=== PATIENT | male | born 1995 | race African-American/Black ===

== ENCOUNTER 2021-10-22 11:17 | Emergency (ER) | payer OTHER ==
[~2021-10-22] VITALS: Ht 172.7 cm; Wt 89.0 kg
[2021-10-22 11:36] VITALS: BP 139/85
[2021-10-22] MEDS ORDERED: CEFTRIAXONE SODIUM 500 MG/VIAL IM ONE (13:15)
[2021-10-22] MEDS ORDERED: LIDOCAINE HCL 1% 20ML VIAL (Pyxis) INJ INFIL ONE (13:15)
[2021-10-22] MEDS ORDERED: DOXY100T2 MT (13:18)
[2021-10-25 04:10] LABS: NEISSERIA GONORRHOEAE NAA Positive (Negative)
== END 2021-10-22 14:43 | disposition home or self-care (01) ==
LOC: ER 14:16
DX: Z20.2 Contact with and (suspected) exposure to infections with a predominantly sexual mode of transmission (principal); R30.0 Dysuria
CPT/HCPCS: 87491; 87591; 96372; 99283; J0696; J3490